=== PATIENT | female | born 1995 | race Caucasian/White ===

== ENCOUNTER 2018-04-14 11:45 | Emergency (ER) | payer SELFPAY ==
[~2018-04-14] VITALS: Ht 157.5 cm; Wt 50.0 kg
[2018-04-14 11:50] VITALS: BP 102/56; PULSE 98; RESP 16; TEMP 101.7; O2SAT 99
--- NOTE | 2018-04-14 12:34 | PD ---
HPI Chief Complaint: Fever Time Seen by Provider: 12:32 Travel History International Travel<30 days: No Contact w/Intl Traveler<30days: No Traveled to known affect area: No History of Present Illness HPI Patient comes in complaining of sore throat, generalized body aches... patient also states she has had nausea with occasional vomiting and diarrhea that started last night. Patient denies any headache, neck stiffness, chest pain, abdominal pain currently. Patient denies any associated alleviating or aggravating factors No known drug allergies Patient denies any significant past medical or surgical history PFSH Past Medical History ?: Not Social History Tobacco Use: No Allergies-Medications (Allergen,Severity, Reaction): Coded Allergies: No Known Allergies (Unverified , 04/14/18) Reported Meds & Prescriptions Reported Meds & Active Scripts Active Reported [Birthcontrol implant] Review of Systems General / Constitutional: Positive: Fever Eyes: No: Visual changes HENT: No: Headaches Cardiovascular: No: Chest Pain or Discomfort Respiratory: No: Shortness of Breath Gastrointestinal: No: Abdominal Pain Genitourinary: No: Dysuria Musculoskeletal: Positive: Myalgias Skin: No Rash Neurologic: No: Weakness Psychiatric: No: Depression Endocrine: No: Polydipsia Hematologic/Lymphatic: No: Easy Bruising Physical Exam Narrative GENERAL: SKIN: Warm and dry. HEAD: Atraumatic. Normocephalic. EYES: Pupils equal and round. No scleral icterus. No injection or drainage. ENT: No nasal bleeding or discharge. Mucous membranes pink and moist. NECK: Trachea midline. No JVD. CARDIOVASCULAR: Regular rate and rhythm. RESPIRATORY: No accessory muscle use. Clear to auscultation. Breath sounds equal bilaterally. GASTROINTESTINAL: Abdomen soft, non-tender, nondistended. MUSCULOSKELETAL: Extremities without clubbing, cyanosis, or edema. No obvious deformities. NEUROLOGICAL: Awake and alert. No obvious cranial nerve deficits. Motor grossly within normal limits. Five out of 5 muscle strength in the arms and legs. Normal speech. PSYCHIATRIC: Appropriate mood and affect; insight and judgment normal. Data Data Last Documented VS Vital Signs Date Time Temp Pulse Resp B/P (MAP) Pulse Ox O2 Delivery O2 Flow Rate FiO2 04/14/18 11:50 101.7 98 16 102/56 (71) 99 Orders Orders Urinalysis - C+S If Indicated (04/14/18 12:38) Ed Urine Pregnancytest Poc (04/14/18 12:38) Ketorolac Inj (Toradol Inj) (04/14/18 12:45) Oseltamivir (Tamiflu) (04/14/18 13:15) Labs Laboratory Tests Test 04/14/18 12:42 Urine Color YELLOW Urine Turbidity CLEAR Urine pH 6.0 Urine Specific [place] 1.026 Urine Protein TRACE mg/dL Urine Glucose (UA) NEG mg/dL Urine Ketones NEG mg/dL Urine Occult Blood TRACE Urine Nitrite NEG Urine Bilirubin NEG Urine Urobilinogen LESS THAN 2.0 MG/DL Urine Leukocyte Esterase NEG Urine RBC 2 /hpf Urine WBC LESS THAN 1 /hpf Urine Squamous Epithelial Cells 1 /hpf Urine Bacteria OCC /hpf Urine Hyaline Casts 2 /lpf Urine Mucus FEW /lpf Microscopic Urinalysis Comment CULT NOT INDICATED MDM Medical Decision Making Medical Screen Exam Complete: Yes Emergency Medical Condition: Yes Medical Record Reviewed: Yes Differential Diagnosis Pneumonia versus viral syndrome versus flu versus pharyngitis Narrative Course On clinical evaluation the patient does not have any evidence of bacterial pharyngitis as the patient has clear rhinorrhea, dry cough, and a multitude of other viral syndrome symptoms. The patient does not have any type of rash nor any meningismus present patient will be treated empirically with Tamiflu and Toradol test negative UA is negative for UTI Diagnosis Primary Impression: Viral syndrome Patient Instructions: General Instructions, Viral Syndrome (ED) Scripts Naproxen DR (Naproxen EC) 375 Mg Tabdr 375 MG PO BID for 10 Days, #20 TAB 0 Refills Prov: Nathan Bejarano MD 04/14/18 Oseltamivir (Tamiflu) 75 Mg Cap 75 MG PO BID for Mgmt Viral Infection for 5 Days, #10 CAP 0 Refills Prov: Nathan Bejarano MD 04/14/18 Ondansetron Odt (Zofran Odt) 4 Mg Tab 4 MG SL Q6HR Y for Nausea/Vomiting, #20 TAB 0 Refills Prov: Nathan Bejarano MD 04/14/18 Disposition: 01 DISCHARGE HOME Condition: Stable Nathan Bejarano MD Apr 14, 2018 12:34
[2018-04-14] MEDS ORDERED: BIRTHCONTROL IMPLANT (12:43)
[2018-04-14] MEDS ORDERED: KETOROLAC TROMETHAMINE 60 MG/2 ML (IM) VIAL IM ONE (12:45)
[2018-04-14 13:13] LABS: BACTERIA, URINE OCC /hpf; BILIRUBIN, URINE NEG (NEG); BLOOD, URINE TRACE (NEG); GLUCOSE,URINE NEG (NEG); HYALINE CAST, URINE 2 /lpf (RARE); KETONE, URINE NEG (NEG); MUCUS URINE FEW /lpf (OCC); NITRITE,URINE NEG (NEG); SQUAMOUS EPITHELIAL CELL URINE 1 /hpf (0-5); URINE COLOR YELLOW (YELLW/STRAW); URINE LEUKOCYTE ESTERASE NEG (NEG)
[2018-04-14] MEDS ORDERED: OSELTAMIVIR PHOSPHATE 75 MG CAP PO ONE (13:15)
[2018-04-14] MEDS ORDERED: ZOFR4TAB3 SL (13:22)
[2018-04-14] MEDS ORDERED: NAPR375T4 PO (13:22)
[2018-04-14] MEDS ORDERED: OSEL75 PO (13:22)
== END 2018-04-14 13:33 | disposition home or self-care (01) ==
LOC: NEPD 11:45
DX: B34.9 Viral infection, unspecified (principal); R19.7 Diarrhea, unspecified; R11.2 Nausea with vomiting, unspecified
CPT/HCPCS: 81001; 84703; 96372; 99283; J1885